=== PATIENT | male | born 1985 | race Caucasian/White ===

== ENCOUNTER 2016-12-20 18:06 | Emergency (ER) | payer SELFPAY ==
[2016-12-20] MEDS ORDERED: Sodium Chloride 0.9% 2.5 ML Syringe FLUSH PRN (18:17)
[2016-12-20] MEDS ORDERED: Sodium Chloride 0.9% 10 ML Syringe FLUSH PRN (18:17)
--- NOTE | 2016-12-20 18:18 | EDM.PDOC ---
ED HPI GENERAL MEDICAL PROBLEM - General Chief Complaint: Headache Stated Complaint: SEVERE HEADACHE Time Seen by Provider: 12/20/16 18:13 Source of Information: Reports: Patient History Limitations: Reports: No Limitations - History of Present Illness INITIAL COMMENTS - FREE TEXT/NARRATIVE: HISTORY AND PHYSICAL: []31-year-old male presenting with history of headache at the back of his head started last night scoring a 15/10 for pain History of Present Illness: []Patient has never had a headache like this before. Patient today had nausea and vomiting headache is still present Review of Systems: As per history of present illness and below otherwise all systems reviewed and negative. Past medical history: As per history of present illness and as reviewed below otherwise noncontributory. Surgical history: As per history of present illness and as reviewed below otherwise noncontributory. Social history: No reported history of drug or alcohol abuse. Family history: As per history of present illness and as reviewed below otherwise noncontributory. Physical exam: Alert and oriented answering questions appropriately patient looks quite miserable nontoxic in appearance no shortness of breath HEENT: Atraumatic, normocehpalic, pupils reactive, negative for conjunctival pallor or scleral icterus, mucous membranes moist, throat erythematous with [place] appearance, neck supple, nontender, trachea midline. Shotty cervical adenopathy anterior Lungs: Clear to auscultation, breath sounds equal bilaterally, chest non tender. Heart: S1S2, regular, negative for clicks, rubs, or JVD. Abdomen: Soft, nondistended, nontender. Negative for masses or hepatossplenmegaly. Negative for costovertebral tenderness. Pelvis: Stable nontender. Genitourinary: Deferred. Rectal: Deferred Extremities: Atraumatic, negative for cords or calf pain. Neurovascular unremarkable. Neuro: Awake, alert, oriented. Cranial nerves II through XII unremarkable. Cerebellum unremarkable. Motor and sensory unremarkable throughout. Exam nonfocal. Nausea has improved Diagnostics: [Head CT CBC CMP and PT/INR] Therapeutics: [Zofran Toradol] Benadry Ativan morphine Impression: [Migraine headache Nausea vomiting] Plan: [Discharged to home Referral to Dr. Mohini Kapoor [facility] [address] [place] [address], [address] [place] [address] ] Definitive disposition and diagnosis as appropriate pending reevaluation and review of above. Head Pain Score (Numeric/FACES): 6 - Related Data Allergies Allergy/AdvReac Type Severity Reaction Status Date / Time Penicillins Allergy Hives Verified 12/20/16 18:07 Home Meds: Home Meds Ondansetron [Zofran ODT] 4 mg PO Q8H #12 tab.dis 12/20/16 [Rx] Past Medical History HEENT History: Reports: None Cardiovascular History: Reports: None Respiratory History: Reports: Sleep Apnea Gastrointestinal History: Reports: None Genitourinary History: Reports: None Musculoskeletal History: Reports: None Neurological History: Reports: None Psychiatric History: Reports: None Endocrine/Metabolic History: Reports: None Hematologic History: Reports: None Immunologic History: Reports: None Oncologic (Cancer) History: Reports: None Dermatologic History: Reports: None - Past Surgical History Head Surgeries/Procedures: Reports: None HEENT Surgical History: Reports: None Cardiovascular Surgical History: Reports: None Respiratory Surgical History: Reports: None GI Surgical History: Reports: None Male Surgical History: Reports: None Endocrine Surgical History: Reports: None Neurological Surgical History: Reports: None Musculoskeletal Surgical History: Reports: None Oncologic Surgical History: Reports: None Dermatological Surgical History: Reports: None Social & Family History - Family History Family Medical History: Noncontributory - Tobacco Use Smoking Status *Q: Never Smoker - Caffeine Use Caffeine Use: Reports: Soda - Recreational Drug Use Recreational Drug Use: No Drug Use in Last 12 Months: No ED ROS GENERAL - Review of Systems Review Of Systems: ROS reveals no pertinent complaints other than HPI. - Physical Exam Exam: See Below (See dictation) Course - Vital Signs Last Recorded V/S: Last Vital Signs Temp 37.1 C 12/20/16 18:07 Pulse 78 12/20/16 19:43 Resp 18 12/20/16 19:43 BP 127/60 12/20/16 19:43 Pulse Ox 97 12/20/16 19:43 - Orders/Labs/Meds Orders: Active Orders 24 hr Category Date Time Status Head wo Cont [CT] Stat Exams 12/20/16 18:18 Taken CULTURE STREP A CONFIRMATION [RM] Stat Lab 12/20/16 21:17 Results STREP SCRN A RAPID W CULT CONF [RM] Stat Lab 12/20/16 21:17 Results Sodium Chloride 0.9% [Saline Flush] Med 12/20/16 18:17 Active 10 ml FLUSH ASDIRECTED PRN Sodium Chloride 0.9% [Saline Flush] Med 12/20/16 18:17 Active 2.5 ml FLUSH ASDIRECTED PRN Saline Lock Insert [OM.PC] Stat Oth 12/20/16 18:17 Ordered Medication Orders Sodium Chloride (Saline Flush) 10 ml FLUSH ASDIRECTED PRN PRN Reason: Keep Vein Open Sodium Chloride (Saline Flush) 2.5 ml FLUSH ASDIRECTED PRN PRN Reason: Keep Vein Open Labs: Laboratory Tests 12/20/16 12/20/16 12/20/16 Range/Units 18:36 18:36 18:36 WBC 11.15 H (4.0-11.0) K/uL RBC 5.58 (4.50-5.90) M/uL Hgb 16.5 (13.0-17.0) g/dL Hct 48.4 (38.0-50.0) % MCV 86.7 (80.0-98.0) fL MCH 29.6 (27.0-32.0) pg MCHC 34.1 (31.0-37.0) g/dL RDW Std Deviation 42.4 (28.0-62.0) fl RDW Coeff of Sky 13 (11.0-15.0) % Plt Count 219 (150-400) K/uL MPV 10.30 (7.40-12.00) fL Neut % (Auto) 82.8 H (48.0-80.0) % Lymph % (Auto) 11.1 L (16.0-40.0) % [place] % (Auto) 5.7 (0.0-15.0) % Eos % (Auto) 0.0 (0.0-7.0) % Baso % (Auto) 0.4 (0.0-1.5) % Neut # (Auto) 9.2 H (1.4-5.7) K/uL Lymph # (Auto) 1.2 (0.6-2.4) K/uL [place] # (Auto) 0.6 (0.0-0.8) K/uL Eos # (Auto) 0.0 (0.0-0.7) K/uL Baso # (Auto) 0.0 (0.0-0.1) K/uL Nucleated RBC % 0.0 /100WBC Nucleated RBCs # 0 K/uL INR 1.16 H (0.86-1.11) Sodium 139 (136-146) mmol/L Potassium 4.4 (3.5-5.1) mmol/L Chloride 104 (98-110) mmol/L Carbon Dioxide 23 (21-31) mmol/L BUN 14 (6.0-23.0) mg/dL Creatinine 0.9 (0.6-1.5) mg/dL Est Cr Clr Drug Dosing 131.93 mL/min Estimated GFR (MDRD) > 60.0 ml/min Glucose 90 (60-110) mg/dL Calcium 9.3 (8.8-10.8) mg/dL Total Bilirubin 0.7 (0.1-1.5) mg/dL AST 22 (5-40) IU/L ALT 27 (8-54) IU/L Alkaline Phosphatase 96 (40-150) Total Protein 7.9 (6.0-8.0) g/dL Albumin 4.1 (3.5-5.0) g/dL Globulin 3.8 H (2.0-3.5) g/dL Albumin/Globulin Ratio 1.1 L (1.3-2.8) Meds: Medications Generic Name Dose Route Start Last Admin Trade Name Freq PRN Reason Stop Dose Admin Sodium Chloride 10 ml 12/20/16 18:17 Saline Flush FLUSH ASDIRECTED PRN Keep Vein Open Sodium Chloride 2.5 ml 12/20/16 18:17 Saline Flush FLUSH ASDIRECTED PRN Keep Vein Open Discontinued Medications Generic Name Dose Route Start Last Admin Trade Name Freq PRN Reason Stop Dose Admin Sodium Chloride 1,000 mls @ 999 mls/hr 12/20/16 19:31 12/20/16 20:18 Normal Saline IV 12/20/16 20:31 999 mls/hr STAT ONE Administration Morphine Sulfate 2 mg 12/20/16 21:25 Morphine IV 12/20/16 21:26 ONETIME ONE Ondansetron HCl 4 mg 12/20/16 19:31 12/20/16 20:19 Zofran IVPUSH 12/20/16 19:32 4 mg ONETIME ONE Administration Ondansetron HCl 4 mg 12/20/16 21:38 Zofran IVPUSH 12/20/16 21:39 ONETIME ONE Departure - Departure Time of Disposition: 21:40 Disposition: Home, Self-Care 01 Condition: Good Clinical Impression: Migraine - Discharge Information Prescriptions: Ondansetron [Zofran ODT] 4 mg PO Q8H #12 tab.dis Instructions: Dehydration, Adult, [id number], General Headache Without Cause , [id number] Referrals: PCP,None [Primary Care Provider] - Mohini Kapoor MD [Physician] - Forms: ED Department Discharge Additional Instructions: The following information is given to patients seen in the emergency department who are being discharged to home. This information is to outline your options for follow-up care. We provide all patients seen in our emergency department with a follow-up referral. The need for follow-up, as well as the timing and circumstances, are variable depending upon the specifics of your emergency department visit. If you don't have a primary care physician on staff, we will provide you with a referral. We always advise you to contact your personal physician following an emergency department visit to inform them of the circumstance of the visit and for follow-up with them and/or the need for any referrals to a consulting specialist. The emergency department will also refer you to a specialist when appropriate. This referral assures that you have the opportunity for followup care with a specialist. All of these measure are taken in an effort to provide you with optimal care, which includes your followup. Under all circumstances we always encourage you to contact your private physician who remains a resource for coordinating your care. When calling for followup care, please make the office aware that this follow-up is from your recent emergency room visit. If for any reason you are refused follow-up, please contact the [facility] emergency department at and asked to speak to the emergency department charge nurse. Discharge to home Prescription of Zofran ODT 4 mg electronically sent to your pharmacy [facility] Home and sleep Follow-up with your primary care provider - My Orders Last 24 Hours: My Active Orders 12/20/16 18:17 Sodium Chloride 0.9% [Saline Flush] 10 ml FLUSH ASDIRECTED PRN Sodium Chloride 0.9% [Saline Flush] 2.5 ml FLUSH ASDIRECTED PRN Saline Lock Insert [OM.PC] Stat 12/20/16 18:18 Head wo Cont [CT] Stat 12/20/16 21:17 CULTURE STREP A CONFIRMATION [RM] Stat STREP SCRN A RAPID W CULT CONF [RM] Stat - Assessment/Plan Last 24 Hours: My Active Orders 12/20/16 18:17 Sodium Chloride 0.9% [Saline Flush] 10 ml FLUSH ASDIRECTED PRN Sodium Chloride 0.9% [Saline Flush] 2.5 ml FLUSH ASDIRECTED PRN Saline Lock Insert [OM.PC] Stat 12/20/16 18:18 Head wo Cont [CT] Stat 12/20/16 21:17 CULTURE STREP A CONFIRMATION [RM] Stat STREP SCRN A RAPID W CULT CONF [RM] Stat
[2016-12-20 19:21] LABS: CHLORIDE,CL 104 mmol/L (98-110); SODIUM,NA 139 mmol/L (136-146)
[2016-12-20] MEDS ORDERED: Sodium Chloride 0.9% 1,000 ML IV ONE (19:31)
[2016-12-20] MEDS ORDERED: Ondansetron 4 MG/2 ML SDV IVPUSH ONE ×2 (19:31→21:38)
--- NOTE | 2016-12-20 20:15 | PCM.SN ---
- Free Text/Narrative Note: Called in for difficult IV placement on dehydrated individual. IV attempts x3. Left wrist 22 g inserted. Flushed and sterile dressing applied.
[2016-12-20] MEDS ORDERED: Morphine 10 MG/ML Syringe IV ONE (21:25)
[2016-12-21 00:17] VITALS: BP 168/74
--- NOTE | 2016-12-21 12:08 | CT ---
EXAM DATE: 12/20/16 PATIENT'S AGE: 31 Patient: IAIN MONTEZ Facility: [place], [place] Site . Site : 1985 Study: CT Head [id number] 8:36:10 PM Ordering Physician: Doctor Peter Final Report: INDICATION: Pain TECHNIQUE: CT head without contrast. COMPARISON: None available FINDINGS: The ventricles and sulci demonstrate normal configuration and size for the patient`s age. There is no mass effect or midline shift. There is tonsillar ectopia which measures up to 5-6 millimeters, borderline. There is no loss of dick-white differentiation. Mildly increased attenuation in a left MCA branch in the sylvian fissure on image 33 is probably related to slow flow in the absence of relevant signs and symptoms. There is no evidence of an acute intracranial hemorrhage. No acute calvarial fracture is seen. The visualized paranasal sinuses and mastoid air cells are clear. Visualized orbits are within normal limits. IMPRESSION: No evidence of an acute intracranial hemorrhage, mass effect or loss of dick- white differentiation. 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 Correlate clinically and consider MRI evaluation. Mildly increased attenuationin a left MCA branch is probably related to slow flow in the absence of relevant signs and symptoms. Correlate clinically. Dictated by Nirmal Leiva MD @ 12/20/2016 9:03:16 PM Dictated by: Nirmal Leiva MD @ 12/20/2016 21:03:25 (Electronic Signature) Report Signed by Proxy. MAURILIO
== END 2016-12-21 00:02 | disposition home or self-care (01) ==
LOC: MW.ED 18:06
DX: G43.909 Migraine, unspecified, not intractable, without status migrainosus (principal); Z88.0 Allergy status to penicillin
CPT/HCPCS: 36415; 70450; 80053; 85025; 85610; 87081; 87880; 96361; 96372; 96374; 96375; 99284; J2270; J2405; J7040; 36410; 99283